=== PATIENT | female | born 1975 | race Caucasian/White ===

== ENCOUNTER → 2020-05-13 | Outpatient (CLI) | payer OTHER ==
[2015-09-06 19:30] VITALS: BP 119/61
--- NOTE | 2020-05-13 15:57 | KCIC ---
Examination: MRI right knee without contrast HISTORY: History of left knee pain, injury COMPARISON: None available TECHNIQUE: Multiplanar, multisequence MR imaging of the left knee was performed without contrast FINDINGS: The anterior cruciate ligament, posterior cruciate ligament appears intact. There is mild increased s ignal identified in the medial meniscus likely mild degenerative changes. There is increased T2 signa l identified in the posterior horn of the lateral meniscus likely degenerative changes. Attenuated appearance of the body and anterior horn of the lateral meniscus could be tear or prior mandel rgical changes. The extensor mechanism appears intact. Moderate knee joint effusion. There is mild mandel perficial fraying of cartilage identified in the medial compartment. There is deep fissuring of carti virgil identified in the lateral, and lateral aspect of the patellofemoral compartments. The medial, la teral retinaculum appears intact. Moderate joint space loss identified in the lateral, patellofemoral compartments IMPRESSION: 1. Attenuated appearance of the body and anterior horn of the lateral meniscus could be tear or prio r surgical changes. 2. Degenerative changes medial, lateral meniscus. 3. Moderate tricompartmental degenerative changes most in the lateral, patellofemoral compartments. 4. Moderate knee joint effusion. Electronically signed by: Danielito Golden MD (05/13/2020 3:55 PM) [id number]
== END ==
LOC: KCIC MRI 14:28
PROVIDERS: ATTEND Physician Assistant
DX: M17.12 Unilateral primary osteoarthritis, left knee (principal); M25.462 Effusion, left knee
CPT/HCPCS: 73721

== ENCOUNTER 2021-04-14 06:05 | Day surgery (SDC) | payer OTHER ==
[~2021-04-14] VITALS: Ht 170.2 cm; Wt 126.8 kg
[~2021-04-14 06:05] MED LIST: APIX5TAB PO; BUPR300T3 PO; HYDROmorphone 2 MG/ML INJ. IVP PRN; IV RINGERS,LACTATED 1000ML 1,000 ML IV SCH; MORPHINE SULFATE 2 MG/ML INJ. IVP PRN; PROCHLORPERAZINE 10 MG/2 ML VIAL. IVP PRN; fentaNYL PF VIAL 100 MCG/2 ML VIAL IVP PRN
[2021-04-14 06:34] VITALS: BP 124/84
[2021-04-14 06:49] LABS: HEMATOCRIT 39.3 % (36.0-47.0); HEMOGLOBIN 13.1 g/dL (12.0-15.5)
[2021-04-14] MEDS ORDERED: FERRIC SUBSULFATE 8 ML SOL.W.APPL TP ONE (06:58)
[2021-04-14] MEDS ORDERED: POTASSIUM IODIDE/IODINE 14 ML SOLUTION. TP ONE (06:58)
[2021-04-14] MEDS ORDERED: BUPIVACAINE-EPI 0.25% 30 ML VIAL KIT. ONE (06:58)
[2021-04-14] MEDS ORDERED: BUPIVACAINE-EPI 0.5% 30 ML VIAL KIT. ONE (06:59)
[2021-04-14] MEDS ORDERED: fentaNYL PF VIAL 100 MCG/2 ML VIAL ONE (07:21)
[2021-04-14] MEDS ORDERED: MIDAZOLAM HCL/PF 2 MG/2 ML VIAL. ONE (07:22)
[2021-04-14] MEDS ORDERED: ENOXAPARIN 40 MG/0.4 ML SYRINGE. SQ ONE (07:45)
[2021-04-14] MEDS ORDERED: ePHEDrine PF IN SALINE 50 MG/10 ML SYRINGE. IV ONE (07:56)
[2021-04-14] MEDS ORDERED: DEXAMETHASONE SOD PHOS 4 MG/ML VIAL ONE (07:56)
[2021-04-14] MEDS ORDERED: ONDANSETRON PF 4 MG/2 ML VIAL. ONE (07:56)
[2021-04-14] MEDS ORDERED: LIDOCAINE 2% PF 5 ML VIAL. ONE (07:56)
[2021-04-14] MEDS ORDERED: PROPOFOL 10 MG/ML (20ML) VIAL. IV ONE (07:56)
[2021-04-14] MEDS ORDERED: KETOROLAC 30 MG/ML VIAL. ONE (07:59)
[2021-04-14] MEDS ORDERED: SEVOFLURANE 61 TO 120 MINUTES. IH ONE (08:01)
[2021-04-14] MEDS ORDERED: HYDROcodone/APAP 5/325MG 1 TAB TABLET PO PRN (08:45)
[2021-04-14] MEDS ORDERED: diphenhydrAMINE 50 MG/ML VIAL IV PRN (08:45)
[2021-04-14] MEDS ORDERED: MAG HYDROX/ALUMINUM HYD/SIMETH 30 ML ORAL.SUSP PO PRN (08:45)
[2021-04-14] MEDS ORDERED: diphenhydrAMINE HCL 25 MG CAPSULE PO PRN (08:45)
[2021-04-14] MEDS ORDERED: SIMETHICONE 80 MG TAB.CHEW PO PRN (08:45)
[2021-04-14] MEDS ORDERED: CALCIUM CARBONATE 500 MG TAB.CHEW PO PRN (08:45)
[2021-04-14] MEDS ORDERED: 0.9 % SODIUM CHLORIDE 10 ML DISP.SYRIN. IV PRN (08:45)
[2021-04-14] MEDS ORDERED: NALOXONE 0.4 MG/ML VIAL. IV PRN (08:45)
--- NOTE | 2021-04-14 08:50 | PDOC4 ---
BRIEF OPERATIVE NOTE Date: Apr 14, 2021 Pre-Op Diagnosis BRITTANEY 3 Post-Op Diagnosis same Procedure Performed LEEP with top hat Surgeon Dr. Leanne Ledezma Anesthesiologist Dr. Marie Anesthesia Type: General Blood Loss 15cc IV Fluid see anesthesia records Urine Output 20cc straight cath prior to procedure Specimens Obtained ectocervical specimen and endoervical specimen Findings anterior lip of cervix that did not accept lugols stain Complications none Operative Note [id number] LEANNE LEDEZMA MD Apr 14, 2021 08:50
[2021-04-14 09:11] VITALS: BP 162/84
--- NOTE | 2021-04-14 09:56 | OP ---
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 PROCEDURE: Loop electrosurgical excision procedure with top hat. SURGEON: Leanne Gaitan MD POWERHOUSE MECHANIC APPRENTICE: OR personnel. ANESTHESIOLOGIST: Dr. Marie. ANESTHESIA: General. BLOOD LOSS: 15 mL. URINE OUTPUT: 20 mL straight cath prior to procedure. IV FLUIDS: Please see anesthesia records. SPECIMENS: An ectocervical specimen and an endocervical specimen. FINDINGS: Anterior lip of the cervix that did not accept the Lugol's stain. COMPLICATIONS: None. DESCRIPTION OF PROCEDURE: This patient was taken to the operating room where general anesthesia was placed. The patient was placed in dorsal lithotomy position in Raj stirrups. The patient's urethra was prepped and draped in the normal sterile fashion and a straight cath urine was done. Upon my arrival, a timeout was performed. Once everyone agreed on the patient, the site, the procedure that she had received her Lovenox, the procedure was initiated. A black laser safe speculum was placed in the patient's vagina. Vinegar was used to bathe and cleanse the vaginal area and cervix. Lugol's was then used to delineate the abnormal area. A broad shallow loop was picked, it was set on 70 coagulation, 50 cut. The loop was used to take a top half and bottom half ectocervix and then it was pushed together for a short narrow specimen on cut and took an endocervical specimen as well. These were sent separately to pathology. The ball cautery was then used on a coagulation setting for hemostasis. One tiny little area that I held pressure to was almost good. I went ahead and got Monsel's put it on with excellent results and no more bleeding. So, once this was done, the procedure was ended. The speculum was removed. All the counts were correct by OR personnel. The patient was awakened from anesthesia and brought to recovery room in stable condition. TRICIA/MARILY DR: Aaron TID: [id number]
--- NOTE | 2021-04-15 15:09 | PATHOLOGY ---
[facility] Accession Number: [id number] . 01 Material submitted: . PART A: ectocervix - ECTOCERVIX PART B: endocervix - ENDOCERVIX . 01 Clinical history: . BRITTANEY III LEEP W/ TOP HAT . 02 Diagnosis: A. 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 - BRITTANEY 3 is focally present at the endocervical margin. - Exocervical and deep margins negative for BRITTANEY 3. . B. Segment of endocervical tissue, "endocervix" LEEP: - Focal coagulative changes - negative for dysplasia. (JPM:alfredo; 04/15/2021) [facility] 04/15/2021 1501 Local . 02 Comment: There is no evidence of invasive carcinoma. (JPM:alfredo; 04/15/2021) . 02 Electronically signed: . Georgi Allen MD, Pathologist NPI- [id number] . 01 Gross description: . A. The specimen is received in formalin, labeled "Tati Berry, ectocervix". Received are two segments of pink-carson cervical tissue, consistent with a LEEP specimen, measuring 2.3 x 1.7 x 0.6 and 3.5 x 1.0 x 0.3 cm in greatest dimensions. The surgical margins are inked. The specimen is serially sectioned and entirely submitted in cassettes A1 through A4. . B. The specimen is received in formalin, labeled "Tati Berry, endocervix". Received is a segment of light carson, granular-appearing tissue consistent with a partial LEEP specimen, measuring 1.8 x 0.8 x 0.7 cm in greatest dimensions. The surgical margin is inked. The specimen is serially sectioned and entirely submitted in cassettes B1 and B2. (CAA; 04/14/2021) [facility]AC/QAC 04/15/2021 1240 Local . 02 Pathologist provided ICD-10: D06.7 . 02 CPT . 936997, [id number] Specimen Comment: A courtesy copy of this report has been sent to [phone], [phone] Specimen Comment: [id number] Specimen Comment: Report sent to / DR WALKER Specimen Comment: A duplicate report has been generated due to demographic updates. Performed at: 01 [facility] [address], [place], [place] [id number] MD Richar Alvarado MD Phone: [phone] Performed at: [facility] [address] [place], [place] [id number] MD Georgi Allen MD Phone: [phone]
== END 2021-04-14 09:36 | disposition home or self-care (01) ==
LOC: SURG 06:05
PROVIDERS: ATTEND Obstetrics & Gynecology
DX: D06.7 Carcinoma in situ of other parts of cervix (principal); E66.9 Obesity, unspecified; F41.9 Anxiety disorder, unspecified; F17.210 Nicotine dependence, cigarettes, uncomplicated; Z90.49 Acquired absence of other specified parts of digestive tract; Z98.890 Other specified postprocedural states; Z79.899 Other long term (current) drug therapy
CPT/HCPCS: 36415; 57522; 81025; 85014; 85018; 88305; 88307; A4352; A4930; J1100; J1650; J1885; J2250; J2405; J2704; J3010